=== PATIENT | male | born 1950 | race Caucasian/White ===

== ENCOUNTER 2020-06-01 13:49 | Emergency (ER) | payer MEDICARE, SELFPAY ==
[2020-06-01 14:14] VITALS: BP 181/91; PULSE 78; RESP 18; TEMP 35.5; O2SAT 98; BMI 32.0
--- NOTE | 2020-06-01 14:42 | ED.RECABL ---
HPI - Recheck/Abnormal Lab/Rx <HOENY Mack - Last Filed: 06/01/20 19:17> General Chief Complaint: Recheck/Abnormal Lab/Rx Stated Complaint: out of HTN meds for 7 days Time Seen by Provider: 06/01/20 13:53 Source: patient Mode of arrival: Family Vehicle Limitations: no limitations History of Present Illness HPI narrative: 70-year-old male history of hypertension, presents emergency department for medication refill. He states he takes losartan 50 mg daily and has for a few years. He sent in a male in order for his prescription that is delayed. He states he does not want to get his blood pressure elevated the would like a refill for his BP medication. Patient denies any symptoms, denies chest pain, shortness of breath, dizziness, nausea, vomiting, diarrhea, or any other concerns. Related Data Previous Rx's Medication Instructions Recorded losartan 50 mg PO DAILY #14 tab 06/01/20 Allergies Allergy/AdvReac Type Severity Reaction Status Date / Time No Known Drug Allergies Allergy Verified 06/01/20 14:31 Review of Systems <HONEY Mack - Last Filed: 06/01/20 19:17> Review of Systems Narrative: REVIEW OF SYSTEMS: GENERAL: Denies fever. HENT: No head trauma. EYES: No vision changes. CARDIOVASCULAR: No chest pain. RESPIRATORY: No shortness of breath or cough. GASTROINTESTINAL: No nausea, vomiting, diarrhea, or constipation. GENITOURINARY: No flank pain. MUSCULOSKELETAL: No pain, weakness, or deformities. INTEGUMENTARY: No rash. . NEURO: No numbness, tingling, memory loss, or confusion. PSYCH: No behavior or mood changes. Patient History <HONEY Mack - Last Filed: 06/01/20 19:17> Medical History Hypertension (Acute) Social History Smoking Status: Current every day smoker Smoking Status: Current every day smoker tobacco type: pipe alcohol intake frequency: 0-2 drinks per day Alcohol type: hard liquor Substance Use Type: does not use Exam <HONEY Mack - Last Filed: 06/01/20 19:17> Initial Vital Signs Initial Vital Signs: Vital Signs Temperature 95.9 F L 06/01/20 14:14 Pulse Rate 78 06/01/20 14:14 Respiratory Rate 18 06/01/20 14:14 Blood Pressure 181/91 H 06/01/20 14:14 Pulse Oximetry 98 06/01/20 14:14 PHYSICAL EXAMINATION: GENERAL: Well groomed, alert, and cooperative. Answers questions promptly and appropriately. Vital signs noted. HENT: Normocephalic, atraumatic. Ear canals patent. Oral mucosa is pink and moist. EYES: Conjunctiva pink, sclera white, no periorbital swelling. CHEST: Normal to inspection and without deformities. CARDIOVASCULAR: S1 and S2 sounds normal. Regular rate and rhythm, no murmurs, clicks, or bruits. No pedal edema. RESPIRATORY: Normal respiratory rate, trachea midline, airway patent. No stridor, nasal flaring or accessory muscle use. Lungs are clear in all manley without wheeze, rhonchi, or crackles. MUSCULOSKELETAL: Normal gait and coordination. Equal tone and mass bilaterally. EXTREMITIES: CMS intact. Moves all extremities. SKIN: Warm, dry, soft, appropriate color for ethnicity. No lesions, rashes, or wounds. NEURO: Alert and Oriented X 3. Good coordination. No ataxia, or sensory deficits, or cognitive issues. PSYCH: Appropriate affect and mood. <Leland Draper DO - Last Filed: 06/02/20 07:33> Initial Vital Signs Initial Vital Signs: Vital Signs Temperature 95.9 F L 06/01/20 14:14 Pulse Rate 78 06/01/20 14:14 Respiratory Rate 18 06/01/20 14:14 Blood Pressure 181/91 H 06/01/20 14:14 Pulse Oximetry 98 06/01/20 14:14 Course <HONEY Mack - Last Filed: 06/01/20 19:17> Vital Signs Vital signs: Vital Signs - 8 hr 06/01/20 14:14 Temperature 95.9 F L Pulse Rate 78 Respiratory Rate 18 Blood Pressure 181/91 H Pulse Oximetry 98 <Leland Draper DO - Last Filed: 06/02/20 07:33> Vital Signs Vital signs: Vital Signs - 8 hr 06/01/20 14:14 Temperature 95.9 F L Pulse Rate 78 Respiratory Rate 18 Blood Pressure 181/91 H Pulse Oximetry 98 [facility] - Recheck/Abnormal Lab/Rx <Elena ClevelandHONEY - Last Filed: 06/01/20 19:17> Medical Records Attestation: I reviewed the patient's medical records. Lab Data Attestation: I reviewed the patient's lab results. [facility] Narrative Medical decision making narrative: 70-year-old male presents emergency department for refill of losartan for his hypertension. Patient has been taking this for some time, denies any symptoms, notice indicated at this time. Medication refilled. Encouraged to follow-up with PCP and return to the ER for any new or worsening symptoms. Discharge Plan Departure Patient Disposition: Home Clinical Impression: Encounter for medication refill Discharge Date/Time: 06/01/20 14:48 Activity Restrictions/Additional Instructions: Thank you for entrusting me with your care today. As discussed, I refilled your blood pressure medication. [facility] in [place]. Please follow-up with your primary care provider for further refills. Return emergency department for any new or worsening symptoms. Prescriptions: New losartan 50 mg tablet 50 mg PO DAILY Qty: 14 RF: 0 <Leland Draper DO - Last Filed: 06/02/20 07:33> Cosign ED Attending Cosignature Attestation: Dr Draper Co-Sign Statement: I was available for consultation during this patient's emergency department visit. This chart is signed by myself for administrative purposes only. I did not have direct contact with this patient during this visit. They were seen independently by the APC.
== END 2020-06-01 14:48 | disposition home or self-care (01) ==
PROVIDERS: Emergency Provider Nurse Practitioner
DX: Z76.0 Encounter for issue of repeat prescription (principal); I10 Essential (primary) hypertension
CPT/HCPCS: 99281

== ENCOUNTER 2022-10-02 16:48 | Emergency (ER) | payer OTHER, MEDICARE, SELFPAY ==
[2022-10-02] VITALS (16 sets, daily range): BP systolic 115–179; BP diastolic 68–87; PULSE 73–88; RESP 17–18; TEMP 36.6; O2SAT 95–99; BMI 29.7
--- NOTE | 2022-10-02 17:05 | DI.RAD.S_ITS ---
PROCEDURE: XR CHEST 1V INDICATIONS: chest pain TECHNIQUE: One view of the chest was acquired. COMPARISON: None. FINDINGS: Surgical changes and devices: Thoracolumbar fusion hardware. Lungs and pleura: Lungs are clear. No pleural effusions or pneumothorax. Mediastinum: Mediastinal contours appear normal. Heart size is normal. Bones and chest wall: No suspicious bony lesions. Overlying soft tissues appear unremarkable. IMPRESSION: No evidence acute pulmonary process. Dictated by: Kee Zavala M.D. on 10/02/2022 at 17:56 Approved by: Kee Zavala M.D. on 10/02/2022 at 17:56
[2022-10-02] MEDS: ASPIRIN 81 MG CHEW TAB 324 MG PO (17:13)
[2022-10-02 17:25] LABS: Add Manual Diff / Slide Review NO; Basophils Absolute Auto 100 /uL (0-100); Basophils Percent Auto 0.9 % (0-2); Eosinophils Absolute Auto 100 /uL (0-450); Hematocrit 44.7 % (41-53); Hemoglobin 14.9 g/dL (13.5-17.5); Lymphocytes Absolute Auto 1700 /uL (1100-4500); Lymphocytes Percent Auto 27.8 % (25-40); Mean Corpuscular HGB Conc 33.4 % (30-36); Mean Corpuscular Hemoglobin 30.2 PG (26-34); Mean Corpuscular Volume 90.5 fL (80-100); Monocytes Absolute Auto 700 /uL (0-900); Monocytes Percent Auto 11.3 % (3-14); Neutrophils Absolute Auto 3600 /uL (1500-7000); Platelet Count 191 X10^3/uL (150-400); Red Blood Cell Count 4.95 X10^6/uL (4.5-5.9); Red Cell Distribution Width 13.4 % (11.6-14.8); White Blood Cell Count 6.2 X10^3/uL (4.5-11.0)
[2022-10-02] MEDS: NITROGLYCERIN 0.4 MG SL TAB SL ×3 (17:29→22:56)
[2022-10-02 17:33] LABS: Prothrombin Time 11.7 SECONDS (10.1-12.7)
[2022-10-02 17:35] LABS: PTT Partial Thromboplastin Tim 32 SECONDS (26-36)
[2022-10-02 17:38] LABS: Alanine Aminotransferase 24 IU/L (<50); Albumin 4.4 g/dL (3.5-5.0); Albumin Globulin Ratio 1.6 (1.0-2.8); Alkaline Phosphatase 62 U/L (38-126); Aspartate Aminotransferase 26 IU/L (17-59); BUN Creatinine Ratio 26.7 (6-22); Blood Urea Nitrogen 16 mg/dL (9-20); Calcium 9.4 mg/dL (8.4-10.2); Carbon Dioxide 28 mmol/L (22-32); Chloride 100 mmol/L (98-107); Creatine Kinase 196 U/L (55-170); Estimated Glomerular Filt Rate > 60 mL/min (>60); Globulin 2.7 g/dL (1.7-4.1); Glucose 102 mg/dL (80-110); HEMOLYSIS < 15 (0-50); Lipase 93 U/L (23-300); Magnesium 1.9 mg/dL (1.6-2.3); Potassium 3.9 mmol/L (3.4-5.1); Sodium 135 mmol/L (137-145); Total Protein 7.1 g/dL (6.3-8.2)
--- NOTE | 2022-10-02 17:41 | PC.NURSE ---
Patient's pain decreased from 4/10 to 1/10 after first nitro. Information given to Dr. Forbes, verbal order given by her for repeat EKG and second nitro to be given.
[2022-10-02 17:50] LABS: Troponin I < 0.012 ng/mL (0.01-0.034)
[2022-10-02 17:52] LABS: COVID19 -Nasal RAPID Negative (Negative)
[2022-10-02 17:54] LABS: CKMB % Relative Index 1.7 % (1.5-5.0); Creatine Kinase MB 3.28 ng/mL (<2.37)
--- NOTE | 2022-10-02 18:22 | ED_ITS ---
HPI - Chest Pain <Jade Forbes DO - Last Filed: 10/04/22 21:16> General Chief Complaint: Chest Pain Stated Complaint: chest pains t-5 Time Seen by Provider: 10/02/22 17:21 Source: patient Mode of arrival: Ambulatory History of Present Illness HPI narrative: Patient is a 72-year-old male history of hypertension type 2 diabetes on metformin, presenting today with shortness of breath and chest discomfort which is worse with exertion. She reports that yesterday today for walking up a steep he reports left-sided chest discomfort with tingling down his left arm. It does not stop him he is able to power through it. However he notices it a lot more. He denies any nausea vomiting or sweating. He reports that his father of massive [place]. He apparently was previously seen by Cardiology he had a heart cath eterization at some point it does not sound like he has stents. Unknown if he is coronary artery disease. He also reports smoking a pipe. 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 He reports chest discomfort at a 3 to a 4. He did receive aspirin. Related Data Previous Rx's Medication Instructions Recorded losartan 50 mg tablet 50 mg PO DAILY HTN #14 tabs 06/01/20 Allergies Allergy/AdvReac Type Severity Reaction Status Date / Time No Known Drug Allergies Allergy Verified 06/01/20 14:31 Review of Systems <Jade Forbes DO - Last Filed: 10/04/22 21:16> Review of Systems ROS Unobtainable: All systems reviewed & are unremarkable except as noted in HPI and below Patient History <Jade Forbes DO - Last Filed: 10/04/22 21:16> Medical History (Updated 10/02/22 @ 22:41 by Mckinley Vegas DO) Hypertension Social History Smoking Status: Current every day smoker Smoking Status: Current every day smoker tobacco type: pipe alcohol intake frequency: 0-2 drinks per day Alcohol type: hard liquor Substance Use Type: does not use Exam <Jade Forbes DO - Last Filed: 10/04/22 21:16> Initial Vital Signs Initial Vital Signs: Vital Signs Temperature 98 F 10/02/22 17:01 Pulse Rate 78 10/02/22 17:01 Respiratory Rate 17 10/02/22 17:01 Blood Pressure 177/79 H 10/02/22 17:01 Pulse Oximetry 97 10/02/22 17:01 Oxygen Delivery Method Room Air 10/02/22 17:01 GENERAL: Alert pleasant well-appearing 72-year-old male and in no acute distress. HEENT: Head atraumatic,EOMI, pupils reactive, face symmetric, moist mucous membranes CARDIOVASCULAR: Regular rate and rhythm without murmurs, rubs or gallops. RESPIRATORY: Breath sounds equal bilaterally, no wheezes rales or rhonchi. ABDOMEN: Soft, nontender. Normoactive bowel sounds all 4 quadrants. No guarding or rebound. EXTREMITIES: Normal range of motion, no clubbing or edema. Neurovascularly intact NEUROLOGICAL: Alert and oriented x4. SKIN: Warm, dry, no laceration, no petechiae, no rashes or lesions. <Mckinley Vegas DO - Last Filed: 10/02/22 22:43> Initial Vital Signs Initial Vital Signs: Vital Signs Temperature 98 F 10/02/22 17:01 Pulse Rate 78 10/02/22 17:01 Respiratory Rate 17 10/02/22 17:01 Blood Pressure 177/79 H 10/02/22 17:01 Pulse Oximetry 97 10/02/22 17:01 Oxygen Delivery Method Room Air 10/02/22 17:01 Course <Jade Forbes DO - Last Filed: 10/04/22 21:16> Orders Ordered: Discontinued Medications Aspirin (Aspirin 81 Mg Chew Tab) 324 mg PO NOW ONE Stop: 10/02/22 17:06 Last Admin: 10/02/22 17:13 Dose: 324 mg Documented By: DAVID Heparin Sodium (Porcine) (Heparin 5,000 Unit/Ml Vial) 5,000 unit IV NOW ONE Stop: 10/02/22 21:46 Last Admin: 10/02/22 22:04 Dose: 5,000 unit Documented By: ALEE Heparin Sodium/Dextrose (Heparin Drip) 25,000 unit in 500 mls @ 20 mls/hr IV CONT ABILIO; Protocol Last Admin: 10/02/22 22:02 Dose: 1,000 units/hr, 20 mls/hr Documented By: ALEE Nitroglycerin (Nitroglycerin 0.4 Mg Sl Tab) 0.4 mg SL [id number] PRN PRN Reason: Chest Pain Last Admin: 10/02/22 22:56 Dose: 0.4 mg Documented By: Admin: 10/02/22 17:45 Dose: 0.4 mg Documented By: Admin: 10/02/22 17:29 Dose: 0.4 mg Documented By: DAVID Vital Signs Vital signs: Vital Signs - 8 hr 10/02/22 17:01 10/02/22 17:29 10/02/22 17:40 Temperature 98 F Pulse Rate 78 80 84 Respiratory Rate 17 17 Blood Pressure 177/79 H 128/87 126/72 Pulse Oximetry 97 96 Oxygen Delivery Method Room Air Room Air 10/02/22 17:45 10/02/22 18:29 10/02/22 19:00 Temperature Pulse Rate 83 88 76 Respiratory Rate 17 18 Blood Pressure 137/81 127/76 115/76 Pulse Oximetry 99 97 Oxygen Delivery Method Room Air Room Air 10/02/22 19:33 10/02/22 19:35 10/02/22 19:35 Temperature Pulse Rate 77 74 Respiratory Rate Blood Pressure 159/80 H Pulse Oximetry 95 98 Oxygen Delivery Method 10/02/22 20:00 10/02/22 20:00 Temperature Pulse Rate 76 Respiratory Rate Blood Pressure 164/75 H Pulse Oximetry 96 Oxygen Delivery Method <Mckinley Vegas DO - Last Filed: 10/02/22 22:43> Orders Ordered: Discontinued Medications Aspirin (Aspirin 81 Mg Chew Tab) 324 mg PO NOW ONE Stop: 10/02/22 17:06 Last Admin: 10/02/22 17:13 Dose: 324 mg Documented By: DAVID Heparin Sodium (Porcine) (Heparin 5,000 Unit/Ml Vial) 5,000 unit IV NOW ONE Stop: 10/02/22 21:46 Last Admin: 10/02/22 22:04 Dose: 5,000 unit Documented By: ALEE Heparin Sodium/Dextrose (Heparin Drip) 25,000 unit in 500 mls @ 20 mls/hr IV CONT ABILIO; Protocol Last Admin: 10/02/22 22:02 Dose: 1,000 units/hr, 20 mls/hr Documented By: ALEE Nitroglycerin (Nitroglycerin 0.4 Mg Sl Tab) 0.4 mg SL [id number] PRN PRN Reason: Chest Pain Last Admin: 10/02/22 22:56 Dose: 0.4 mg Documented By: Admin: 10/02/22 17:45 Dose: 0.4 mg Documented By: Admin: 10/02/22 17:29 Dose: 0.4 mg Documented By: DAVID Vital Signs Vital signs: Vital Signs - 8 hr 10/02/22 17:01 10/02/22 17:29 10/02/22 17:40 Temperature 98 F Pulse Rate 78 80 84 Respiratory Rate 17 17 Blood Pressure 177/79 H 128/87 126/72 Pulse Oximetry 97 96 Oxygen Delivery Method Room Air Room Air 10/02/22 17:45 10/02/22 18:29 10/02/22 19:00 Temperature Pulse Rate 83 88 76 Respiratory Rate 17 18 Blood Pressure 137/81 127/76 115/76 Pulse Oximetry 99 97 Oxygen Delivery Method Room Air Room Air 10/02/22 19:33 10/02/22 19:35 10/02/22 19:35 Temperature Pulse Rate 77 74 Respiratory Rate Blood Pressure 159/80 H Pulse Oximetry 95 98 Oxygen Delivery Method 10/02/22 20:00 10/02/22 20:00 Temperature Pulse Rate 76 Respiratory Rate Blood Pressure 164/75 H Pulse Oximetry 96 Oxygen Delivery Method MDM - Chest Pain <Jade Forbes, DO - Last Filed: 10/04/22 21:16> Lab Data 10/02/22 17:15 10/02/22 17:15 Labs: Lab Results 10/02/22 10/02/22 10/02/22 Range/Units 17:05 17:15 17:15 WBC 6.2 (4.5-11.0) X10^3/uL RBC 4.95 (4.5-5.9) X10^6/uL Hgb 14.9 (13.5-17.5) g/dL Hct 44.7 (41-53) % MCV 90.5 (80-100) fL MCH 30.2 (26-34) PG MCHC 33.4 (30-36) % RDW 13.4 (11.6-14.8) % Plt Count 191 (150-400) X10^3/uL Neut % (Auto) 58.0 (50-75) % Lymph % (Auto) 27.8 (25-40) % Lander % (Auto) 11.3 (3-14) % Eos % (Auto) 2.0 (2-4) % Baso % (Auto) 0.9 (0-2) % Neut # (Auto) 3600 (7857-2127) /uL Lymph # (Auto) 1700 (1663-5353) /uL Lander # (Auto) 700 (0-900) /uL Eos # (Auto) 100 (0-450) /uL Baso # (Auto) 100 (0-100) /uL PT 11.7 (10.1-12.7) SECONDS INR 1.0 (0.9-1.3) APTT 32 (26-36) SECONDS Sodium (137-145) mmol/L Potassium (3.4-5.1) mmol/L Chloride (98-107) mmol/L Carbon Dioxide (22-32) mmol/L BUN (9-20) mg/dL Creatinine (0.66-1.25) mg/dL Estimated GFR (>60) mL/min BUN/Creatinine Ratio (6-22) Glucose (80-110) mg/dL Calcium (8.4-10.2) mg/dL Magnesium (1.6-2.3) mg/dL Total Bilirubin (0.2-1.3) mg/dL AST (17-59) IU/L ALT (<50) IU/L Alkaline Phosphatase (38-126) U/L Total Creatine Kinase (55-170) U/L CK-MB (CK-2) (<2.37) ng/mL CK-MB (CK-2) Rel Index (1.5-5.0) % Troponin I (0.01-0.034) ng/mL Total Protein (6.3-8.2) g/dL Albumin (3.5-5.0) g/dL Globulin (1.7-4.1) g/dL Albumin/Globulin Ratio (1.0-2.8) Lipase (23-300) U/L SARS-CoV-2 (PCR) Negative (Negative) 10/02/22 10/02/22 10/02/22 Range/Units 17:15 18:59 22:10 WBC (4.5-11.0) X10^3/uL RBC (4.5-5.9) X10^6/uL Hgb (13.5-17.5) g/dL Hct (41-53) % MCV (80-100) fL MCH (26-34) PG MCHC (30-36) % RDW (11.6-14.8) % Plt Count (150-400) X10^3/uL Neut % (Auto) (50-75) % Lymph % (Auto) (25-40) % Lander % (Auto) (3-14) % Eos % (Auto) (2-4) % Baso % (Auto) (0-2) % Neut # (Auto) (4634-8662) /uL Lymph # (Auto) (8403-1581) /uL Lander # (Auto) (0-900) /uL Eos # (Auto) (0-450) /uL Baso # (Auto) (0-100) /uL PT (10.1-12.7) SECONDS INR (0.9-1.3) APTT 33 (26-36) SECONDS Sodium 135 L (137-145) mmol/L Potassium 3.9 (3.4-5.1) mmol/L Chloride 100 (98-107) mmol/L Carbon Dioxide 28 (22-32) mmol/L BUN 16 (9-20) mg/dL Creatinine 0.60 L (0.66-1.25) mg/dL Estimated GFR > 60 (>60) mL/min BUN/Creatinine Ratio 26.7 H (6-22) Glucose 102 (80-110) mg/dL Calcium 9.4 (8.4-10.2) mg/dL Magnesium 1.9 (1.6-2.3) mg/dL Total Bilirubin 1.0 (0.2-1.3) mg/dL AST 26 (17-59) IU/L ALT 24 (<50) IU/L Alkaline Phosphatase 62 (38-126) U/L Total Creatine Kinase 196 H (55-170) U/L CK-MB (CK-2) 3.28 H (<2.37) ng/mL CK-MB (CK-2) Rel Index 1.7 (1.5-5.0) % Troponin I < 0.012 < 0.012 (0.01-0.034) ng/mL Total Protein 7.1 (6.3-8.2) g/dL Albumin 4.4 (3.5-5.0) g/dL Globulin 2.7 (1.7-4.1) g/dL Albumin/Globulin Ratio 1.6 (1.0-2.8) Lipase 93 (23-300) U/L SARS-CoV-2 (PCR) (Negative) Imaging Data Chest x-ray: Radiologist's Impression: PROCEDURE:? XR CHEST 1V ? INDICATIONS:? chest pain ? TECHNIQUE:? One view of the chest was acquired.? ? COMPARISON:? None. ? FINDINGS:? ? Surgical changes and devices:? Thoracolumbar fusion hardware.? ? Lungs and pleura:? Lungs are clear.? No pleural effusions or pneumothorax.? ? Mediastinum:? Mediastinal contours appear normal.? Heart size is normal.? ? Bones and chest wall:? No suspicious bony lesions.? Overlying soft tissues a ppear unremarkable.? ? IMPRESSION:? No evidence acute pulmonary process. ? ? ? Dictated by: Kee Zavala M.D. on 10/02/2022 at 17:56 ? ? ECG Data Interpretation: Sinus rhythm rate 75 ME interval 192 QRS 102 QTC 453 slightly low voltage no ST changes no priors to compare EKG 2. Sinus rhythm rate 83 no prior MDM Narrative Medical decision making narrative: Patient is a 72-year-old male who presents with chest pain while walking up a hill. Concern for acute coronary syndrome. He has no known coronary artery disease. He is no EKG changes. He received nitroglycerin and aspirin in the emergency department and has been chest pain-free. Other electrolytes are within normal limits no FERNIE no evidence of anemia or infection. He has no EKG changes. 7:50 Dr. Taylor on-call cardiology updated on patient's symptoms test results recommends transferring to [facility] so he can have appropriate testing done. Patient signed out to Dr. Vegas for transfer. [facility] Requests we do initiate heparin. <Mckinley Vegas, - Last Filed: 10/02/22 22:43> Lab Data Labs: Lab Results 10/02/22 10/02/22 10/02/22 Range/Units 17:05 17:15 17:15 WBC 6.2 (4.5-11.0) X10^3/uL RBC 4.95 (4.5-5.9) X10^6/uL Hgb 14.9 (13.5-17.5) g/dL Hct 44.7 (41-53) % MCV 90.5 (80-100) fL MCH 30.2 (26-34) PG MCHC 33.4 (30-36) % RDW 13.4 (11.6-14.8) % Plt Count 191 (150-400) X10^3/uL Neut % (Auto) 58.0 (50-75) % Lymph % (Auto) 27.8 (25-40) % Lander % (Auto) 11.3 (3-14) % Eos % (Auto) 2.0 (2-4) % Baso % (Auto) 0.9 (0-2) % Neut # (Auto) 3600 (6015-8826) /uL Lymph # (Auto) 1700 (5815-8662) /uL Lander # (Auto) 700 (0-900) /uL Eos # (Auto) 100 (0-450) /uL Baso # (Auto) 100 (0-100) /uL PT 11.7 (10.1-12.7) SECONDS INR 1.0 (0.9-1.3) APTT 32 (26-36) SECONDS Sodium (137-145) mmol/L Potassium (3.4-5.1) mmol/L Chloride (98-107) mmol/L Carbon Dioxide (22-32) mmol/L BUN (9-20) mg/dL Creatinine (0.66-1.25) mg/dL Estimated GFR (>60) mL/min BUN/Creatinine Ratio (6-22) Glucose (80-110) mg/dL Calcium (8.4-10.2) mg/dL Magnesium (1.6-2.3) mg/dL Total Bilirubin (0.2-1.3) mg/dL AST (17-59) IU/L ALT (<50) IU/L Alkaline Phosphatase (38-126) U/L Total Creatine Kinase (55-170) U/L CK-MB (CK-2) (<2.37) ng/mL CK-MB (CK-2) Rel Index (1.5-5.0) % Troponin I (0.01-0.034) ng/mL Total Protein (6.3-8.2) g/dL Albumin (3.5-5.0) g/dL Globulin (1.7-4.1) g/dL Albumin/Globulin Ratio (1.0-2.8) Lipase (23-300) U/L SARS-CoV-2 (PCR) Negative (Negative) 10/02/22 10/02/22 10/02/22 Range/Units 17:15 18:59 22:10 WBC (4.5-11.0) X10^3/uL RBC (4.5-5.9) X10^6/uL Hgb (13.5-17.5) g/dL Hct (41-53) % MCV (80-100) fL MCH (26-34) PG MCHC (30-36) % RDW (11.6-14.8) % Plt Count (150-400) X10^3/uL Neut % (Auto) (50-75) % Lymph % (Auto) (25-40) % Lander % (Auto) (3-14) % Eos % (Auto) (2-4) % Baso % (Auto) (0-2) % Neut # (Auto) (8272-7600) /uL Lymph # (Auto) (9014-3915) /uL Lander # (Auto) (0-900) /uL Eos # (Auto) (0-450) /uL Baso # (Auto) (0-100) /uL PT (10.1-12.7) SECONDS INR (0.9-1.3) APTT 33 (26-36) SECONDS Sodium 135 L (137-145) mmol/L Potassium 3.9 (3.4-5.1) mmol/L Chloride 100 (98-107) mmol/L Carbon Dioxide 28 (22-32) mmol/L BUN 16 (9-20) mg/dL Creatinine 0.60 L (0.66-1.25) mg/dL Estimated GFR > 60 (>60) mL/min BUN/Creatinine Ratio 26.7 H (6-22) Glucose 102 (80-110) mg/dL Calcium 9.4 (8.4-10.2) mg/dL Magnesium 1.9 (1.6-2.3) mg/dL Total Bilirubin 1.0 (0.2-1.3) mg/dL AST 26 (17-59) IU/L ALT 24 (<50) IU/L Alkaline Phosphatase 62 (38-126) U/L Total Creatine Kinase 196 H (55-170) U/L CK-MB (CK-2) 3.28 H (<2.37) ng/mL CK-MB (CK-2) Rel Index 1.7 (1.5-5.0) % Troponin I < 0.012 < 0.012 (0.01-0.034) ng/mL Total Protein 7.1 (6.3-8.2) g/dL Albumin 4.4 (3.5-5.0) g/dL Globulin 2.7 (1.7-4.1) g/dL Albumin/Globulin Ratio 1.6 (1.0-2.8) Lipase 93 (23-300) U/L SARS-CoV-2 (PCR) (Negative) MDM Narrative Medical decision making narrative: Patient is a 72-year-old male who presents with chest pain while walking up a hill. He has no known coronary artery disease. He is no EKG changes. He received nitroglycerin and aspirin in the emergency department and has been chest pain-free. Other electrolytes are within normal limits no FERNIE no evidence of anemia or infection. He has no EKG changes. 7:50 Dr. Taylor on-call cardiology updated on patient's symptoms test results recommends transferring to [facility] so he can have appropriate testing done. Patient signed out to Dr. Vegas for transfer. 2200 -call from [facility] hospitalist (Franck) happy to accept patient in transfer. Requests we do initiate heparin. <Mckinley Vegas, - Last Filed: 10/02/22 22:43> Critical Care Time Critical Care Time: Yes Total Critical Care Time: 30 Attestation: The high probability of a clinically significant, sudden or life threatening deterioration of the [CV] system(s) required my full and direct attention, intervention and personal management. The aggregate critical care time was [30] minutes. This time is in addition to time spent performing reported procedures but includes the following: [x] Data Review and interpretation [x] Patient assessment and monitoring of vital signs [x] Documentation [x] Medication orders and management Discharge Plan Departure Patient Disposition: [facility] Clinical Impression: Angina pectoris, unstable Prescriptions: No Action losartan 50 mg tablet 50 mg PO DAILY Qty: 14 0RF
--- NOTE | 2022-10-02 18:29 | PC.NURSE ---
Pain completely relieved after 2nd nitro. Dr. robi dodd.
[2022-10-02 19:44] LABS: Troponin I < 0.012 ng/mL (0.01-0.034)
[2022-10-02] MEDS: HEPARIN DRIP 25,000 UNIT/500 ML IV.SOLN 20 UNIT IV (22:02)
[2022-10-02] MEDS: HEPARIN 5,000 UNIT/ML VIAL 5000 UNIT IV (22:04)
[2022-10-02 22:29] LABS: PTT Partial Thromboplastin Tim 33 SECONDS (26-36)
--- NOTE | 2022-10-09 21:02 | PC.NURSE ---
Late entry: Heparin [id number]/500ml dextrose infusing at 20mls/hr continued during pt transfer. Pt left dept at 2313. 1 hour and 11 minutes of heparin therapy, 23.67mls, or 1183 units of heparin was received in dept prior to discharge.
== END 2022-10-02 23:13 | disposition short-term general hospital (02) ==
PROVIDERS: Emergency Medicine; Emergency Provider Emergency Medicine
DX: I20.0 Unstable angina (principal); I10 Essential (primary) hypertension; Z20.822 Contact with and (suspected) exposure to COVID-19
CPT/HCPCS: 36415; 71045; 80053; 82550; 82553; 83690; 83735; 84484; 85025; 85610; 85730; 87635; 93005; 93010; 96365; 96375; 99284; 99291; C9803; J1644

== ENCOUNTER 2022-12-06 17:52 | Emergency (ER) | payer OTHER, MEDICARE, SELFPAY ==
[2022-12-06] VITALS (7 sets, daily range): BP systolic 158–181; BP diastolic 80–93; PULSE 73–86; RESP 20; TEMP 36.4; O2SAT 95–97; BMI 29.2
--- NOTE | 2022-12-06 18:35 | ED.EYEPROB ---
HPI - Eye Problem General Chief complaint: Eye Problems Stated complaint: R/EYE pain, blurry vision, worse when moves head Time Seen by Provider: 12/06/22 18:27 History of Present Illness HPI Narrative: Patient is a 72-year-old male who is presenting with right eye pain and blurriness. He reports it has been ongoing for the last 2 weeks but vision seems to be getting worse and pain seems to be getting worse. Today he to close calls while driving. No accident. He is no numbness tingling or weakness. He is noted to be hypertensive initially here in the ED he reports that he did check his blood pressure at home earlier was 130/78. He has no peripheral loss of vision does not see halos no floaters no flashing lights. He denies any eye surgeries no cataract surgery Related Data Previous Rx's Medication Instructions Recorded losartan 50 mg tablet 50 mg PO DAILY HTN #14 tabs 06/01/20 Allergies Allergy/AdvReac Type Severity Reaction Status Date / Time No Known Drug Allergies Allergy Verified 12/06/22 18:42 Review of Systems Review of Systems ROS Unobtainable: All systems reviewed & are unremarkable except as noted in HPI and below Patient History Medical History (Updated 12/06/22 @ 20:03 by Jade Forbes DO) Hypertension Social History Smoking Status: Current every day smoker Smoking Status: Current every day smoker tobacco type: pipe alcohol intake frequency: 0-2 drinks per day Alcohol type: hard liquor Substance Use Type: does not use Exam Initial Vital Signs Initial Vital Signs: Vital Signs Pulse Rate 83 12/06/22 18:31 Pulse Oximetry 97 12/06/22 18:31 GENERAL: Alert pleasant 72-year-old male and in [no acute] distress. HEENT: Head atraumatic,EOMI, pupils reactive, face symmetric, [moist] mucous membranes Left eye 37mmHg (checked 3 times 29mmHg, 36mmHg, 30mmHg and 19mmHg) Right 22mmHg CARDIOVASCULAR: Regular rate and rhythm without murmurs, rubs or gallops. RESPIRATORY: Breath sounds equal bilaterally, no wheezes rales or rhonchi. ABDOMEN: Soft, nontender. Normoactive bowel sounds all 4 quadrants. No guarding or rebound. EXTREMITIES: Normal range of motion, no clubbing or edema. Neurovascularly intact NEUROLOGICAL: Alert and oriented x4. SKIN: Warm, dry, no laceration, no petechiae, no rashes or lesions. Course Orders Ordered: Discontinued Medications Fluorescein Sodium (Fluorescein 1 Mg Strip) 1 mg EYE-BOTH NOW ONE Stop: 12/06/22 18:56 Last Admin: 12/06/22 18:59 Dose: 1 mg Documented By: BS Proparacaine HCl (Proparacaine 0.5% Ophth Jeanne) 1 drops EYE-BOTH NOW ONE Stop: 12/06/22 18:39 Last Admin: 12/06/22 18:43 Dose: 1 drops Documented By: BS Vital Signs Vital signs: Vital Signs - 8 hr 12/06/22 18:37 12/06/22 18:31 12/06/22 19:00 Temperature 97.6 F Pulse Rate 86 83 81 Respiratory Rate 20 Blood Pressure 181/91 H Pulse Oximetry 97 97 96 Oxygen Delivery Method Room Air 12/06/22 19:03 12/06/22 19:03 12/06/22 19:30 Temperature Pulse Rate 77 79 Respiratory Rate Blood Pressure 158/80 H Pulse Oximetry 96 96 Oxygen Delivery Method 12/06/22 20:00 12/06/22 20:05 12/06/22 20:05 Temperature Pulse Rate 73 73 Respiratory Rate Blood Pressure 161/93 H Pulse Oximetry 95 96 Oxygen Delivery Method MDM - Eye Problem MDM Narrative Medical decision making narrative: Patient having some irritation in the right eye bilateral blurry vision ongoing for 2 weeks had to close calls while driving today bringing him to the emergency department. When I check pressures he is definitely more irritated and resistant on the left. Eye pressures are more elevated on the left than the right concern for acute versus chronic angle glaucoma. Patient has not had any surgeries. Dr. Dunn, on-call Ophthalmology at [facility] consulted in regards to patient slightly elevated blood pressure in the left eye. Concern for glaucoma. He requests that pressure be repeated and really hold the eyelid open. Once eyelid is hold open really well I got a pressure of 30 mmHg and 19 mmHg. He thought pressures were elevated secondary to like eyelid and irritation. No need for emergent transfer he is given patient's information and request follow-up outpatient in 1-2 weeks. He reports that they can likely see him before December for full evaluation. Patient is instructed not to drive until full evaluation. Discharge Plan Departure Patient Disposition: Home Clinical Impression: Blurred vision Instructions: Coping With Low Vision Activity Restrictions/Additional Instructions: DO NOT DRIVE UNTIL EVALUATION BY OPHTHALMOLOGY AND YOUR VISION HAS BEEN CORRECTED *You have been diagnosed with vision changes *What to do: At this time you do need evaluation with Ophthalmology. [facility] will call you next week to schedule an appointment the next 1-2 weeks. Please refrain from driving temporarily. *Continue to take medications as directed *Follow up with your primary care provider in 2-3 days or call [phone] *Return to ER if you should have floaters flashing lights decreased vision or any new, worsening or concerning symptoms Prescriptions: No Action losartan 50 mg tablet 50 mg PO DAILY Qty: 14 0RF Referrals: Miscellaneous,Doctor, MD [Primary Care Provider] - Stand Alone Forms: Patient Portal/API
[2022-12-06] MEDS: PROPARACAINE 0.5% OPHTH SOL 1 DROPS EYE-BOTH (18:43)
[2022-12-06] MEDS: FLUORESCEIN 1 MG STRIP EYE-BOTH (18:59)
== END 2022-12-06 20:11 | disposition home or self-care (01) ==
PROVIDERS: Emergency Provider Emergency Medicine
DX: H57.11 Ocular pain, right eye (principal); H53.8 Other visual disturbances
CPT/HCPCS: 99282